=== PATIENT | male | born 1965 ===

== ENCOUNTER 2025-02-17 00:24 | Outpatient (CLI) | payer OTHER, SELFPAY ==
--- NOTE | 2025-02-17 10:15 | DI.RAD_ITS ---
Exam(s) RF BARIUM SWALLOW EXAM: RF BARIUM SWALLOW CLINICAL HISTORY: Esophageal dysphagia, R13.19 TECHNIQUE: 2D and realtime digital imaging was performed. CONTRAST MATERIAL: Oral barium Oral water soluble contrast was administered. COMPARISON: No exams were available for comparison FINDINGS: ESOPHAGRAM: Performed both standing and recumbent The swallowing mechanism is grossly intact and there was no aspiration evident. No evidence of obvio us hypertense upper esophageal sphincter. However, there is a very small Zenker's diverticulum evide nt at the C6 level, measuring approximately 4 mm. Remainder of the esophagus is unremarkable. GE ju nction is unremarkable. No hiatal hernia. No Schatzki ring. No reflux demonstrated. IMPRESSION: Tiny Zenker's diverticulum noted. No other findings on this esophagram. RADIATION DOSE DELIVERED: isiah Dumont=26.3 mGy
[2025-02-17] MEDS: Simethicone/Sod Bicarb/Cit Ac, 4 gram PACKET 1 PACKET PO (10:27)
[2025-02-17] MEDS: Barium Sulfate 60% W/V 355 ML BTL PO (10:28)
[2025-02-17] MEDS: Barium Sulfate 98% W/W 140 ML BTL PO (10:29)
== END 2025-02-17 00:44 ==
PROVIDERS: PCP Family Medicine; Visit Provider Family Medicine
DX: R13.19 Other dysphagia (principal)
CPT/HCPCS: 74221; J3490